=== PATIENT | male | born 1965 | race Two or more races ===

== ENCOUNTER 2020-07-22 20:14 | Emergency (ER) | payer SELFPAY ==
[~2020-07-22] VITALS: Ht 182.9 cm; Wt 81.6 kg
[2020-07-22] MEDS ORDERED: LIDOCAINE W/ EPINEPHRINE 2% INJ 20ML VIAL ID ONE (21:45)
[2020-07-22 22:15] LABS: Urine Bacteria NONE SEEN /hpf (None Seen); Urine Blood TRACE /uL (Negative); Urine Mucus FEW (None Seen); Urine Specific Gravity 1.009 (1.001-1.035); Urine WBC 5 /hpf (0 - 3)
[2020-07-23 03:45] VITALS: BP 122/75
== END 2020-07-23 04:00 | disposition home or self-care (01) ==
LOC: EDBD 20:14 → ER 20:20
DX: S06.9X0A Unspecified intracranial injury without loss of consciousness, initial encounter (principal); S09.93XA Unspecified injury of face, initial encounter; X58.XXXA Exposure to other specified factors, initial encounter; Y93.89 Activity, other specified; Y92.89 Other specified places as the place of occurrence of the external cause; Y99.8 Other external cause status
CPT/HCPCS: 70450; 72125; 81001